=== PATIENT | female | born 1980 | race Caucasian/White ===

== ENCOUNTER → 2017-12-19 | Outpatient (CLI) | payer OTHER ==
[~2017-12-19] MED LIST: CALCTAB5 PO; ESCI1TAB10 PO; PRENTAB26 PO; SNG10 PO
--- NOTE | 2017-12-19 18:16 | DIAGNOSTIC IMAGING REPORT ---
PELVIC ULTRASOUND CLINICAL HISTORY: Pelvic pain. COMPARISON STUDY: Pelvic ultrasound April 03, 2010. TECHNIQUE: Transabdominal and transvaginal sonography of the pelvis was performed. FINDINGS: This exam is compromised due to suboptimal penetration. The uterus measures 10.1 x 4.5 x 5.5 cm. An intrauterine device appears appropriately positioned. There is no evidence for endometrial thickening. The right ovary was not visualized. The left ovary measured 2.2 x 3.1 x 2.4 cm and contained a 2.4 cm dominant follicle. There is color flow within the left ovary. No free fluid was identified. IMPRESSION: 1. Appropriately positioned intrauterine device. 2. Nonvisualization of the right ovary. Study compromised due to suboptimal penetration. 3. 2.4 cm dominant follicle within the left ovary. Electronically signed by: Jaiden Hernandez M.D. 12/19/2017 6:14 PM Dictated Date/Time: 12/19/2017 6:13 PM
== END | disposition home or self-care (01) ==
LOC: C.ULTR 17:10
PROVIDERS: ATTEND Student in an Organized Health Care Education/Training Program
DX: R10.2 Pelvic and perineal pain (principal); N83.02 Follicular cyst of left ovary

== ENCOUNTER → 2018-04-16 | Outpatient (CLI) | payer OTHER | END | disposition home or self-care (01) | LOC: C.PATHSPEC 10:22 | PROVIDERS: ATTEND Urology | DX: R30.0 Dysuria (principal); R31.0 Gross hematuria; N39.0 Urinary tract infection, site not specified ==

== ENCOUNTER → 2018-05-02 | Outpatient (CLI) | payer OTHER ==
[~2018-05-02] MED LIST changes: +OPTIRAY 320 IV PRN
--- NOTE | 2018-05-02 08:39 | DIAGNOSTIC IMAGING REPORT ---
CT UROGRAM CLINICAL HISTORY: Dysuria. Gross hematuria. COMPARISON STUDY: Abdominal ultrasound dated 02/25/2007. TECHNIQUE: Before and following the IV administration of 92 cc of Optiray 320, CT urogram of the abdomen and pelvis is performed from the lung bases to the proximal femora. Images are reviewed in the axial, sagittal, and coronal planes. IV contrast was administered without complication. A dose lowering technique was utilized adhering to the principles of ALARA. The examination is degraded by large body habitus, and by streak artifact from the body wall abutting the CT gantry. CT DOSE: 2517.38 mGycm FINDINGS: Lung bases: The heart is normal in size and without pericardial effusion. The lung bases are clear. Liver: The contrast-enhanced liver is enlarged, measuring 25.0 cm in length. The liver demonstrates diffusely imaged attenuation consistent with severe hepatic steatosis. Fatty sparing is noted adjacent to gallbladder fossa. There is no intrahepatic biliary ductal dilatation. The hepatic veins and portal veins are patent. Gallbladder: Unremarkable. Spleen: Normal in size and attenuation. Pancreas: Unremarkable. Adrenal glands: Unremarkable. Kidneys and ureters: The contrast enhanced kidneys are normal in size and without hydronephrosis. There are no renal calculi identified on the unenhanced images. The kidneys enhance and excrete symmetrically. There is no enhancing renal cortical mass lesion identified. There is no evidence of urothelial lesion within the renal pelvis bilaterally or along the course of either ureter. Portions of the ureters are not well opacified by excreted contrast. Abdominal vasculature: The abdominal aorta is normal in course and caliber. Bowel: The small bowel and colon are normal in course and caliber. The appendix is well-visualized and normal. Peritoneum: There is no intraperitoneal free air or abdominal ascites. There is a small fat-containing umbilical hernia. Lymphadenopathy: None. Pelvic viscera: The bladder is decompressed and grossly unremarkable. The uterus is normal as imaged noting an intrauterine device in place. There are small ovarian follicles. Skeletal structures: No lytic or blastic lesions are seen. IMPRESSION: 1. Unremarkable assessment of the kidneys and ureters. 2. The bladder was decompressed and grossly unremarkable. 3. Hepatomegaly and severe hepatic steatosis. Electronically signed by: Horacio Judd M.D. 05/02/2018 8:37 AM Dictated Date/Time: 05/02/2018 8:32 AM
== END | disposition home or self-care (01) ==
LOC: C.CTS 07:58
PROVIDERS: ATTEND Urology
DX: N39.0 Urinary tract infection, site not specified (principal); R31.0 Gross hematuria; R30.0 Dysuria; R16.0 Hepatomegaly, not elsewhere classified; K76.0 Fatty (change of) liver, not elsewhere classified

== ENCOUNTER 2018-09-08 08:47 | Inpatient (IN) ==
[2018-09-08] MEDS ORDERED: MoRPHine SULFATE 4 MG/ML 1 ML CARP\\VIAL IV STA (09:39)
[2018-09-08] MEDS ORDERED: ONDANSETRON INJ 2 MG/ML 2 ML VIAL IV STA (09:39)
[2018-09-08] MEDS ORDERED: SODIUM CHLORIDE 0.9% 1000ML 1,000 ML IV SCH (09:45)
[2018-09-08 10:07] LABS: Basophils # (auto) 0.01 K/uL (0-0.2); Basophils % (auto) 0.1 %; Eosinophils # (auto) 0.13 K/uL (0-0.5); Eosinophils % (auto) 1.2 %; Hematocrit (blood only) 39.1 % (37-47); Hemoglobin 13.5 g/dL (12.0-16.0); Immature Granulocytes # (auto) 0.01 K/uL (0.00-0.02); Immature Granulocytes % (auto) 0.1 %; Lymphocytes # (auto) 1.64 K/uL (1.2-3.4); Lymphocytes % (auto) 15.7 %; Mean Corpuscular Hgb Conc 34.5 g/dL (32-36); Mean Corpuscular Volume 87.7 fL (80-100); Mean Platelet Volume 9.6 fL (7.4-10.4); Monocytes # (auto) 0.67 K/uL (0.11-0.59); Monocytes % (auto) 6.4 %; Neutrophils # (auto) 7.96 K/uL (1.4-6.5); Neutrophils % (auto) 76.5 %; Platelet Count 199 K/uL (130-400); RDW Coefficient of Variation 13.1 % (11.5-14.5); RDW Standard Deviation 42.1 fL (36.4-46.3); Red Blood Count 4.46 M/uL (4.2-5.4); White Blood Count 10.42 K/uL (4.8-10.8)
[2018-09-08 10:15] LABS: Appearance Urine Clear (Clear); Color Urine Orange; Specific Gravity Urine 1.022 (1.000-1.030)
[2018-09-08 10:16] LABS: Protein Urine Positive (Negative)
[2018-09-08 10:22] LABS: RBC Urine >30 /hpf (0-4)
[2018-09-08 10:23] LABS: Albumin Level 3.5 gm/dl (3.4-5.0); BUN Creatinine Ratio 20.8 (10-20); Calcium 8.7 mg/dl (8.5-10.1); Creatinine Clr Calc Pharmacy 118.8 ml/min; Est GFR (Non-African American) 86.3; Potassium 3.9 mmol/L (3.5-5.1)
[2018-09-08 10:24] LABS: Bacteria Urine 2+ (Negative)
[2018-09-08 10:25] LABS: Mucus Urine Present (None Prsent)
[2018-09-08 10:26] LABS: Albumin Globulin Ratio 0.9 (0.9-2); Bilirubin,Total 0.5 mg/dl (0.2-1); Globulin 3.9 gm/dl (2.5-4.0); Total Protein 7.4 gm/dl (6.4-8.2)
[2018-09-08 10:28] LABS: Pregnancy Test, Serum Negative (Negative)
--- NOTE | 2018-09-08 10:36 | CT Scan Report ---
CT SCAN OF THE ABDOMEN AND PELVIS WITHOUT IV CONTRAST CLINICAL HISTORY: Left flank pain. Reported history of recent ureteral stent removal. COMPARISON STUDY: Abdominal CT dated 05/02/2018. TECHNIQUE: CT scan of the abdomen and pelvis is performed from the lung bases to the proximal femora. Images are reviewed in the axial, sagittal, and coronal planes. IV contrast was not administered for this examination. A dose lowering technique was utilized adhering to the principles of ALARA. The ex amination is degraded by large body habitus, and by streak artifact from the body wall abutting the C T gantry. CT DOSE: 2111.29 mGy.cm FINDINGS: Lung bases: The heart is normal in size and without pericardial effusion. There is elevation of the r ight hemidiaphragm with associated atelectasis. The lung bases are otherwise clear. Liver: The unenhanced liver is enlarged measuring 25.4 cm in length. The liver demonstrates diffusely diminished attenuation consistent with severe hepatic steatosis. Fatty sparing is seen adjacent to g allbladder fossa. A 3.3 cm hyperdense focus is seen in the left hepatic lobe on image #135. There is no intrahepatic biliary ductal dilatation. Gallbladder: Unremarkable. Spleen: Normal in size and attenuation. Pancreas: Unremarkable. Adrenal glands: Unremarkable. Kidneys: The unenhanced kidneys are normal in size. The left kidney appears edematous and there is mo derate left-sided hydronephrosis. Urothelial thickening is noted in the left ureter, and there is lef t-sided perinephric and periureteric stranding. There is no right-sided hydronephrosis. There are no renal calculi identified. There is no evidence of contour deforming renal mass lesion. Abdominal vasculature: The abdominal aorta is normal in course and caliber. Bowel: The small bowel and colon are normal in course and caliber. The appendix is well-visualized a nd normal. Peritoneum: There is no intraperitoneal free air or abdominal ascites. There is a fat-containing umbi lical hernia. Lymphadenopathy: None. Pelvic viscera: The bladder is partially decompressed and grossly unremarkable. An intrauterine devic e is in place. Small uterine fibroids are suggested. No adnexal lesion is seen. There are bilateral o varian follicles. Skeletal structures: No lytic or blastic lesions are seen. IMPRESSION: 1. The left kidney is edematous and there is moderate left-sided hydronephrosis. Additionally, there is urothelial thickening seen throughout the left ureter, with associated left-sided perinephric and periureteric stranding. This may be related to the reported history of recent instrumentation. Correl ate clinically and with urinalysis for evidence of superimposed urinary tract infection. 2. No renal calculi or obstructing lesion is seen. 3. Hepatomegaly and severe hepatic steatosis. 4. There is a 3.3 cm ovoid hyperdense focus in the left hepatic lobe. This likely represents geograph ic fatty sparing. An indeterminant hepatic lesion could also have this appearance. If further assessm ent is desired an MRI of the liver would be required. 5. Additional findings as above. Electronically signed by: Horacio Judd M.D. 09/08/2018 10:35 AM
[2018-09-08] MEDS ORDERED: MoRPHine SULFATE 2 MG/ML CARP IV STA (11:41)
[2018-09-08] MEDS ORDERED: LEVOFLOXACIN/D5W 500 MG/100 ML BAG IV ONE (12:49)
--- NOTE | 2018-09-08 13:27 | Emergency Department Note ---
Entered by Norman Ramirez acting as a scribe for Grady Garnica DO History of Present Illness General Chief complaint: Urinary Symptoms Stated complaint: POST OP, URINARY STENT, PAIN Time Seen by Provider: 09/08/18 09:13 Source: patient History of Present Illness Onset (ago): day(s) 1 Location: left (groin and flank) Pain Consistency: + constant Quality: + other (left groin and flank pain s/p cystoscopy four days ago) Relieved By: + medication (Percocet) Associated symptoms: no other (burning with urination) The patient is a 38 year old female s/p cystoscopy four days ago who presents to the Emergency Room with complaints of constant left groin and flank pain beginning yesterday. The patient reports that she had a polyp removed and a stent placed during her recent procedure performed by Dr. Yan - Urology. She states that she was doing well until yesterday when her stent was loose, and she was instructed to pull it out by Dr. Yan after calling. Dr. Yna also stated that the pain should last only around 12 hours, but she states that her pain has continued to persist. She reports that for the past year, she has been experiencing pain in her groin as well as recurrent UTIs. She states that she is currently taking doxycycline, Pyridium, and Percocet for pain management. She denies recent burning with urination. She notes that she does not have kidney stones. Home Medications Home Medications Medication Instructions Recorded Confirmed Type albuterol sulfate 1 puff INHALATION Q6H PRN 08/18/18 09/08/18 History nitrofurantoin macrocrystal 50 mg PO UD 08/18/18 09/08/18 History venlafaxine [Effexor XR] 150 mg PO QAM 08/18/18 09/08/18 History doxycycline hyclate 100 mg PO BID #10 cap 09/04/18 09/08/18 Rx oxycodone-acetaminophen [Percocet] 1 tab PO Q6H PRN #3 tab 09/04/18 09/08/18 Rx phenazopyridine [Urinary Pain 95 mg PO Q8 PRN 09/08/18 09/08/18 History Relief] tamsulosin [Flomax] 0.4 mg PO DIRECTED 12/31/18 12/31/18 History Allergies Allergy/AdvReac Type Severity Reaction Status Date / Time cephalexin Allergy Intermediate hives Verified 09/08/18 09:15 Cephalosporins Allergy Intermediate HIVES Verified 09/08/18 09:15 erythromycin base Allergy Intermediate HIVES Verified 09/08/18 09:15 Penicillins Allergy Intermediate HIVES Verified 09/08/18 09:15 sertraline Allergy Intermediate HIVES Verified 09/08/18 09:15 Past Med/Surg History Medical History Anxiety Asthma rarely uses prn inh Bladder polyp Factor 5 Leiden mutation, heterozygous Doesn't cause problems, but did have to use Lovenox after childbirth. Fatty liver Morbid obesity with BMI of 45.0-49.9, adult Social History Current Living Situation: Spouse Feels Safe at Home: Yes Smoking Status: Never smoker Second Hand Exposure: No Hx Alcohol Use: No Hx Substance Use: No Beliefs That Will Affect Care: None Visual Impairment: No Limitations Review of Systems See HPI for pertinent positives & negatives. and A total of 10 systems reviewed and were otherwise negative Physical Exam Vital Signs Vital Signs - 24 hr 09/08/18 08:51 09/08/18 11:15 09/08/18 12:14 Temperature 36.3 C L Temperature Source Oral Sepsis Recent Fever Within 48 Hours No Sepsis Action Taken by Nursing No Action Required Pulse Rate 108 H Pulse Rate [Finger] 93 H 90 Respiratory Rate 20 16 18 Respiratory Effort / Characteristics Non-Labored Respiratory Depth Normal Blood Pressure 150/96 H Blood Pressure [Right Arm] 145/89 H 130/90 Blood Pressure Mean 114 Blood Pressure Mean [Right Arm] 107 103 Pulse Oximetry 96 96 96 Oxygen Delivery Method Room Air Room Air CONSTITUTIONAL/VITAL SIGNS: Reviewed / noted above. GENERAL: Non-toxic in appearance. INTEGUMENTARY: Warm, dry, and [place]. HEAD: Normocephalic. EYES: without scleral icterus or trauma. ENT/OROPHARYNX: clear and moist. LYMPHADENOPATHY/NECK: Is supple without lymphadenopathy or meningismus. RESPIRATORY: Lungs clear and equal. CARDIOVASCULAR: Regular rate and rhythm. GI/ABDOMEN: Soft and nontender. No organomegaly or pulsatile mass. No rebound or guarding. Normal bowel sounds. EXTREMITIES: Warm and well perfused. BACK: Left-sided CVA tenderness. NEUROLOGICAL: Intact without focal deficits. PSYCHIATRIC: normal affect. MUSCULOSKELETAL: Normally developed with good muscle tone. Course 931: Past medical records reviewed. The patient was evaluated in room A10, and a complete history and physical examination were performed. 1242: I discussed the patients case with Dr. Macdonald Urology. He recommends admitting the patient and administering antibiotics. 1253: I consulted Dr. Ray [facility] Hospitalist. She will reevaluate the patient for hospitalization. 1258: I updated the patient on the plan for hospitalization. Consultations Consultation #1: I discussed the patients case with Dr. Macdonald Urology. He recommends admitting the patient and administering antibiotics. Time: 12:42 Consultation #2: I consulted Dr. Ray [facility] Hospitalist. She will reevaluate the patient for hospitalization. Time: 12:53 Administered Medications Levofloxacin/Dextrose (Levaquin/D5w) 500 mg in 100 mls @ 100 mls/hr IV ONE ONE Stop: 09/08/18 13:48 Last Admin: 09/08/18 12:56 Dose: 100 mls/hr Discontinued Medications Sodium Chloride (Nss 1000ml) 1,000 mls @ 999 mls/hr IV .Q1H1M MICHAEL Stop: 09/08/18 10:45 Last Infusion: 09/08/18 11:13 Dose: 0 mls/hr Admin: 09/08/18 10:13 Dose: 999 mls/hr Morphine Sulfate (Morphine Sulfate) 4 mg IV NOW STA Stop: 09/08/18 09:40 Last Admin: 09/08/18 10:12 Dose: 4 mg Morphine Sulfate (Morphine Sulfate) 2 mg IV NOW STA Stop: 09/08/18 11:42 Last Admin: 09/08/18 11:50 Dose: 2 mg Ondansetron HCl (Zofran) 4 mg IV NOW STA Stop: 09/08/18 09:40 Last Admin: 09/08/18 10:12 Dose: 4 mg Medical Decision Making Differential Diagnosis Differential diagnosis: Etiologies such as renal colic, appendicitis, diverticulitis, mesenteric ischemia, aortic pathology, infections, inflammatory bowel disease, PUD, biliary pathology, UTI, as well as others were entertained. Medical Records Attestation: I reviewed the patient's medical records. Home Medications Current Medication List: was personally reviewed by me Laboratory Data Attestation: I reviewed the patient's lab results. Result diagrams: 09/08/18 10:00 09/08/18 10:00 Lab Results 09/08/18 09/08/18 09/08/18 Range/Units 09:30 10:00 10:00 WBC 10.42 (4.8-10.8) K/uL RBC 4.46 (4.2-5.4) M/uL Hgb 13.5 (12.0-16.0) g/dL Hct 39.1 (37-47) % MCV 87.7 (80-100) fL MCH 30.3 (25-34) pg MCHC 34.5 (32-36) g/dL RDW Std Deviation 42.1 (36.4-46.3) fL RDW Coeff of [place] 13.1 (11.5-14.5) % Plt Count 199 (130-400) K/uL MPV 9.6 (7.4-10.4) fL Immature Gran % (Auto) 0.1 % Neut % (Auto) 76.5 % Lymph % (Auto) 15.7 % [place] % (Auto) 6.4 % Eos % (Auto) 1.2 % Baso % (Auto) 0.1 % Immature Gran # (Auto) 0.01 (0.00-0.02) K/uL Neut # (Auto) 7.96 H (1.4-6.5) K/uL Lymph # (Auto) 1.64 (1.2-3.4) K/uL [place] # (Auto) 0.67 H (0.11-0.59) K/uL Eos # (Auto) 0.13 (0-0.5) K/uL Baso # (Auto) 0.01 (0-0.2) K/uL Sodium 137 (136-145) mmol/L Potassium 3.9 (3.5-5.1) mmol/L Chloride 106 (98-107) mmol/L Carbon Dioxide 23 (21-32) mmol/L Anion Gap 8.0 (3-11) BUN 18 (7-18) mg/dl Creatinine 0.86 (0.6-1.2) mg/dl Est Cr Clr Drug Dosing 118.8 ml/min Est GFR ( Amer) 100.0 Est GFR (Non-Af Amer) 86.3 BUN/Creatinine Ratio 20.8 H (10-20) Glucose 126 H (70-99) mg/dl Calcium 8.7 (8.5-10.1) mg/dl Total Bilirubin 0.5 (0.2-1) mg/dl AST 12 L (15-37) U/L ALT 31 (12-78) U/L Alkaline Phosphatase 75 (45-117) U/L Total Protein 7.4 (6.4-8.2) gm/dl Albumin 3.5 (3.4-5.0) gm/dl Globulin 3.9 (2.5-4.0) gm/dl Albumin/Globulin Ratio 0.9 (0.9-2) HCG, Qual (Negative) Urine Color [place] Urine Appearance Clear (Clear) Urine pH (4.5-7.5) Ur Specific [place] 1.022 (1.000-1.030) Urine Protein Positive H (Negative) Urine Glucose (UA) (Negative) Urine Ketones (Negative) Urine Blood (Negative) Urine Nitrite (Negative) Urine Bilirubin (Negative) Urine Urobilinogen (Negative) Ur Leukocyte Esterase (Negative) Urine RBC >30 H (0-4) /hpf Urine WBC 5-10 H (0-5) /hpf Ur Epithelial Cells >30 H (0-5) /lpf Urine Bacteria 2+ H (Negative) Urine Mucus Present H (None Prsent) 09/08/18 Range/Units 10:00 WBC (4.8-10.8) K/uL RBC (4.2-5.4) M/uL Hgb (12.0-16.0) g/dL Hct (37-47) % MCV (80-100) fL MCH (25-34) pg MCHC (32-36) g/dL RDW Std Deviation (36.4-46.3) fL RDW Coeff of Barbara (11.5-14.5) % Plt Count (130-400) K/uL MPV (7.4-10.4) fL Immature Gran % (Auto) % Neut % (Auto) % Lymph % (Auto) % [place] % (Auto) % Eos % (Auto) % Baso % (Auto) % Immature Gran # (Auto) (0.00-0.02) K/uL Neut # (Auto) (1.4-6.5) K/uL Lymph # (Auto) (1.2-3.4) K/uL [place] # (Auto) (0.11-0.59) K/uL Eos # (Auto) (0-0.5) K/uL Baso # (Auto) (0-0.2) K/uL Sodium (136-145) mmol/L Potassium (3.5-5.1) mmol/L Chloride (98-107) mmol/L Carbon Dioxide (21-32) mmol/L Anion Gap (3-11) BUN (7-18) mg/dl Creatinine (0.6-1.2) mg/dl Est Cr Clr Drug Dosing ml/min Est GFR ( Amer) Est GFR (Non-Af Amer) BUN/Creatinine Ratio (10-20) Glucose (70-99) mg/dl Calcium (8.5-10.1) mg/dl Total Bilirubin (0.2-1) mg/dl AST (15-37) U/L ALT (12-78) U/L Alkaline Phosphatase (45-117) U/L Total Protein (6.4-8.2) gm/dl Albumin (3.4-5.0) gm/dl Globulin (2.5-4.0) gm/dl Albumin/Globulin Ratio (0.9-2) HCG, Qual Negative (Negative) Urine Color Urine Appearance (Clear) Urine pH (4.5-7.5) Ur Specific [place] (1.000-1.030) Urine Protein (Negative) Urine Glucose (UA) (Negative) Urine Ketones (Negative) Urine Blood (Negative) Urine Nitrite (Negative) Urine Bilirubin (Negative) Urine Urobilinogen (Negative) Ur Leukocyte Esterase (Negative) Urine RBC (0-4) /hpf Urine WBC (0-5) /hpf Ur Epithelial Cells (0-5) /lpf Urine Bacteria (Negative) Urine Mucus (None Prsent) Imaging Data Radiologist's Impression: Radiology results as stated below per my review and the radiologist's interpretation: CT SCAN OF THE ABDOMEN AND PELVIS WITHOUT IV CONTRAST CLINICAL HISTORY: Left flank pain. Reported history of recent ureteral stent removal. COMPARISON STUDY: Abdominal CT dated 05/02/2018. TECHNIQUE: CT scan of the abdomen and pelvis is performed from the lung bases to the proximal femora. Images are reviewed in the axial, sagittal, and coronal planes. IV contrast was not administered for this examination. A dose lowering technique was utilized adhering to the principles of ALARA. The examination is degraded by large body habitus, and by streak artifact from the body wall abutting the CT gantry. CT DOSE: 2111.29 mGy.cm FINDINGS: Lung bases: The heart is normal in size and without pericardial effusion. There is elevation of the right hemidiaphragm with associated atelectasis. The lung bases are otherwise clear. Liver: The unenhanced liver is enlarged measuring 25.4 cm in length. The liver demonstrates diffusely diminished attenuation consistent with severe hepatic steatosis. Fatty sparing is seen adjacent to gallbladder fossa. A 3.3 cm hyperdense focus is seen in the left hepatic lobe on image #135. There is no intrahepatic biliary ductal dilatation. Gallbladder: Unremarkable. Spleen: Normal in size and attenuation. Pancreas: Unremarkable. Adrenal glands: Unremarkable. Kidneys: The unenhanced kidneys are normal in size. The left kidney appears edematous and there is moderate left-sided hydronephrosis. Urothelial thickening is noted in the left ureter, and there is left-sided perinephric and periureteric stranding. There is no right-sided hydronephrosis. There are no renal calculi identified. There is no evidence of contour deforming renal mass lesion. Abdominal vasculature: The abdominal aorta is normal in course and caliber. Bowel: The small bowel and colon are normal in course and caliber. The appendix is well-visualized and normal. Peritoneum: There is no intraperitoneal free air or abdominal ascites. There is a fat-containing umbilical hernia. Lymphadenopathy: None. Pelvic viscera: The bladder is partially decompressed and grossly unremarkable. An intrauterine device is in place. Small uterine fibroids are suggested. No adnexal lesion is seen. There are bilateral ovarian follicles. Skeletal structures: No lytic or blastic lesions are seen. IMPRESSION: 1. The left kidney is edematous and there is moderate left-sided hydronephrosis. Additionally, there is urothelial thickening seen throughout the left ureter, with associated left-sided perinephric and periureteric stranding. This may be related to the reported history of recent instrumentation. Correlate clinically and with urinalysis for evidence of superimposed urinary tract infection. 2. No renal calculi or obstructing lesion is seen. 3. Hepatomegaly and severe hepatic steatosis. 4. There is a 3.3 cm ovoid hyperdense focus in the left hepatic lobe. This likely represents geographic fatty sparing. An indeterminant hepatic lesion could also have this appearance. If further assessment is desired an MRI of the liver would be required. 5. Additional findings as above. Electronically signed by: Horacio Judd M.D. 09/08/2018 10:35 AM Blood Pressure Blood Pressure Findings: Elevated blood pressure Blood Pressure Disposition: further management by hospitalist DAVID Germain This is a 38-year-old female who presents to the ED with a chief complaint of left flank pain radiating to her left groin. The patient had a cystoscopy [address] Yan. The patient started noticing that her ureteral stent seem to be coming out yesterday. This was then removed by the . Since that time, she has had increasing discomfort in her left flank and groin area. The patient has some left CVA tenderness on exam. No abdominal tenderness. CBC and chemistry panel was unremarkable. Urine revealed protein but no evidence of infection. test was negative. A CT scan of the abdomen pelvis reveals some edematous left kidney with left-sided hydronephrosis and perinephric and periureteral stranding and ureteral thickening. The patient was treated with IV morphine, IV fluids and IV Zofran. She is also given IV Levaquin. I spoke with Dr. Macdonald from urology. He recommends keeping the patient in the hospital for pain management and further evaluation. I spoke with the hospitalist about the patient. Impression & Plan Hydroureteronephrosis Discharge Plan Visit Data Chief Complaint: Urinary Symptoms Stated Complaint: POST OP, URINARY STENT, PAIN ED Provider: Grady Garnica Discharge Problem: Hydroureteronephrosis Patient Disposition: Being Evaluated by Hospitalist Forms Stand Alone Forms: My [facility] Prescriptions Prescriptions: No Action phenazopyridine [Urinary Pain Relief] 95 mg Tablet 95 mg PO Q8 PRN (Reason: urinary pain) RF: 0 tamsulosin [Flomax] 0.4 mg capsule 0.4 mg PO DIRECTED RF: 0 nitrofurantoin macrocrystal 50 mg Capsule 50 mg PO UD RF: 0 venlafaxine [Effexor XR] 150 mg Capsule,Extended Release 24hr 150 mg PO QAM RF: 0 albuterol sulfate 90 mcg/actuation Hfa Aerosol Inhaler 1 puff INHALATION Q6H PRN (Reason: Shortness Of Breath) RF: 0 oxycodone-acetaminophen [Percocet] 7.5-325 mg tablet 1 tab PO Q6H PRN (Reason: pain) Qty: 3 RF: 0 doxycycline hyclate 100 mg capsule 100 mg PO BID Qty: 10 RF: 0 Referrals Referrals: Lonnie Chi [Primary Care Provider] - The scribe's documentation has been prepared under my direction and personally reviewed by me in its entirety. I confirm that the note above accurately reflects all work, treatment, procedures, and medical decision making performed by me.
--- NOTE | 2018-09-08 13:38 | History & Physical Report ---
Date of Service September 08, 2018 Assessment & Plan (1) Hydroureteronephrosis: S/p removal of stent. CT with edematous left kidney with moderate left- sided hydronephrosis with urothelial thickening throughout the left ureter, perinephric and periureteric stranding. Patient is afebrile, hemodynamically stable, no leukocytosis. UA+ protein/RBCs/WBCs/epi/bacteria. +UOP. ? inflammation s/p instrumention and stent removal. * Admit to medical floor * Follow urine culture * Monitor I/Os * Nausea control with Zofran 4mg IV q 6 hours PRN * Pain control with Morphine 2mg IV q 2 hours PRN * Cipro 500mg po BID * Flomax 0.4mg po daily * Urology consultation - appreciate assistance with this case * Will keep patient NPO if event of procedure - will advance diet as tolerated * Present on Admission?: Yes (2) Anxiety: Chronic. Well controlled with Effexor * Continue Effexor daily * F/E/N - LR at 100mL/hr x 2 liters, monitor electrolytes and replete as needed, NPO for now will advance diet as tolerated Ppx - Low risk for DVT Code - Full per discussion with patient Dispo - Admit to medical floor for pain, nausea control and Uro evaluation Present on Admission?: Yes History of Present Illness Chief Complaint: Left flank pain Primary Care Provider: Lonnie Chi Patient is a pleasant 38yo female presenting with left flank and groin pain. Patient has been having longstanding intermittent groin and flank pain with hematuria. Workup performed by Urology - cystoscopy with bilateral retrograde pyelogram performed on 09/04/[address] Yan, s/p biopsy of bladder neck, left ureteral orifice and placement of a left ureteral stent. She was discharged home with Flomax and Doxycycline as well as percocet for pain. States that she was doing well after the procedure, minimal pain. Yesterday, , around 12:00 she noted that her stent became loose and the string was out. She contacted Urology and was told to remove the stent. Patient's pulled the stent without difficulty. Patient had slight discomfort. She took her Flomax, Percocet and Ibuprofen with relief of discomfort. This AM around 02:00 she had worsening left flank and groin pain. She again took her medications with minimal relief. Pain became severe around 08:00 which prompted her to come to the ER. She denies fevers, chills or sweats. Does complain of left flank pain, groin pain and nausea with no vomiting. No additional complaints at this time. ER Course: Morphine x 6mg IV, Zofran x 4mg IV, Levaquin, NSS Allergies Allergy/AdvReac Type Severity Reaction Status Date / Time cephalexin Allergy Intermediate hives Verified 09/08/18 09:15 Cephalosporins Allergy Intermediate HIVES Verified 09/08/18 09:15 erythromycin base Allergy Intermediate HIVES Verified 09/08/18 09:15 Penicillins Allergy Intermediate HIVES Verified 09/08/18 09:15 sertraline Allergy Intermediate HIVES Verified 09/08/18 09:15 Home Medications Home Medications Medication Instructions Recorded Confirmed Type albuterol sulfate 1 puff INHALATION Q6H PRN 08/18/18 09/08/18 History nitrofurantoin macrocrystal 50 mg PO UD 08/18/18 09/08/18 History venlafaxine [Effexor XR] 150 mg PO QAM 08/18/18 09/08/18 History doxycycline hyclate 100 mg PO BID #10 cap 09/04/18 09/08/18 Rx oxycodone-acetaminophen [Percocet] 1 tab PO Q6H PRN #3 tab 09/04/18 09/08/18 Rx phenazopyridine [Urinary Pain 95 mg PO Q8 PRN 09/08/18 09/08/18 History Relief] tamsulosin [Flomax] 0.4 mg PO DIRECTED 09/08/18 09/08/18 History Past Med/Surg History Medical History Anxiety Asthma rarely uses prn inh Bladder polyp Factor 5 Leiden mutation, heterozygous Doesn't cause problems, but did have to use Lovenox after childbirth. Fatty liver Morbid obesity with BMI of 45.0-49.9, adult Social History Current Living Situation: Spouse Other Information That Helps Us Care for You: No Feels Safe at Home: Yes Safety Concerns: Feels Safe At This Time Smoking Status: Never smoker Do You Dip or Chew Tobacco: No Second Hand Exposure: No Tobacco Cessation Education Requested by Patient: No Hx Alcohol Use: No Hx Substance Use: No Beliefs That Will Affect Care: None Preferred Language: Belarusian Communication Ability: Effective Kier Boiler Required: No Review of Systems All systems reviewed & are unremarkable except as noted in HPI & below +UOP, no dysuria, no hematuria Physical Exam 2 Vital Signs (Past 24 Hours): Last Vital Signs Temp 36.3 C L 09/08/18 08:51 Pulse 90 09/08/18 12:14 Resp 18 09/08/18 12:14 BP 130/90 09/08/18 12:14 Pulse Ox 96 09/08/18 12:14 Physical Exam: General: patient resting comfortably, NAD, non-toxic in appearance, AA&O x 4 Skin: warm, dry, intact, no rashes or lesions HEENT: NC/AT, PERRL, EOMI, anicteric sclera, conjunctiva without injection, external ear normal to inspection and nontender, nares patent, moist mucus membranes, dentition intact, no oropharyngeal lesions, neck supple, trachea midline, no LAD, no thyromegaly, no JVD Heart: +S1/S2, regular, no m/r/g Lungs: equal air entry bilaterally, no rales/rhonchi/wheezes Abd: +BS, soft, NT/ND, no masses/organomegaly/ascites, +Left flank discomfort and CVA tenderness Ext: warm, 2+ pulses in UE/LE bilaterally, no clubbing/cyanosis or edema Neuro: nonfocal, patient AA&O x 4, speech intact, no facial droop, moving all extremities on command with equal strength 5/5 Results & Data Laboratory Results Lab Results 09/08/18 09/08/18 09/08/18 Range/Units 09:30 10:00 10:00 WBC 10.42 (4.8-10.8) K/uL RBC 4.46 (4.2-5.4) M/uL Hgb 13.5 (12.0-16.0) g/dL Hct 39.1 (37-47) % MCV 87.7 (80-100) fL MCH 30.3 (25-34) pg MCHC 34.5 (32-36) g/dL RDW Std Deviation 42.1 (36.4-46.3) fL RDW Coeff of Barbara 13.1 (11.5-14.5) % Plt Count 199 (130-400) K/uL MPV 9.6 (7.4-10.4) fL Immature Gran % (Auto) 0.1 % Neut % (Auto) 76.5 % Lymph % (Auto) 15.7 % [place] % (Auto) 6.4 % Eos % (Auto) 1.2 % Baso % (Auto) 0.1 % Immature Gran # (Auto) 0.01 (0.00-0.02) K/uL Neut # (Auto) 7.96 H (1.4-6.5) K/uL Lymph # (Auto) 1.64 (1.2-3.4) K/uL [place] # (Auto) 0.67 H (0.11-0.59) K/uL Eos # (Auto) 0.13 (0-0.5) K/uL Baso # (Auto) 0.01 (0-0.2) K/uL Sodium 137 (136-145) mmol/L Potassium 3.9 (3.5-5.1) mmol/L Chloride 106 (98-107) mmol/L Carbon Dioxide 23 (21-32) mmol/L Anion Gap 8.0 (3-11) BUN 18 (7-18) mg/dl Creatinine 0.86 (0.6-1.2) mg/dl Est Cr Clr Drug Dosing 118.8 ml/min Est GFR ( Amer) 100.0 Est GFR (Non-Af Amer) 86.3 BUN/Creatinine Ratio 20.8 H (10-20) Glucose 126 H (70-99) mg/dl Calcium 8.7 (8.5-10.1) mg/dl Total Bilirubin 0.5 (0.2-1) mg/dl AST 12 L (15-37) U/L ALT 31 (12-78) U/L Alkaline Phosphatase 75 (45-117) U/L Total Protein 7.4 (6.4-8.2) gm/dl Albumin 3.5 (3.4-5.0) gm/dl Globulin 3.9 (2.5-4.0) gm/dl Albumin/Globulin Ratio 0.9 (0.9-2) HCG, Qual (Negative) Urine Color [place] Urine Appearance Clear (Clear) Urine pH (4.5-7.5) Ur Specific [place] 1.022 (1.000-1.030) Urine Protein Positive H (Negative) Urine Glucose (UA) (Negative) Urine Ketones (Negative) Urine Blood (Negative) Urine Nitrite (Negative) Urine Bilirubin (Negative) Urine Urobilinogen (Negative) Ur Leukocyte Esterase (Negative) Urine RBC >30 H (0-4) /hpf Urine WBC 5-10 H (0-5) /hpf Ur Epithelial Cells >30 H (0-5) /lpf Urine Bacteria 2+ H (Negative) Urine Mucus Present H (None Prsent) 09/08/18 Range/Units 10:00 WBC (4.8-10.8) K/uL RBC (4.2-5.4) M/uL Hgb (12.0-16.0) g/dL Hct (37-47) % MCV (80-100) fL MCH (25-34) pg MCHC (32-36) g/dL RDW Std Deviation (36.4-46.3) fL RDW Coeff of Barbara (11.5-14.5) % Plt Count (130-400) K/uL MPV (7.4-10.4) fL Immature Gran % (Auto) % Neut % (Auto) % Lymph % (Auto) % [place] % (Auto) % Eos % (Auto) % Baso % (Auto) % Immature Gran # (Auto) (0.00-0.02) K/uL Neut # (Auto) (1.4-6.5) K/uL Lymph # (Auto) (1.2-3.4) K/uL [place] # (Auto) (0.11-0.59) K/uL Eos # (Auto) (0-0.5) K/uL Baso # (Auto) (0-0.2) K/uL Sodium (136-145) mmol/L Potassium (3.5-5.1) mmol/L Chloride (98-107) mmol/L Carbon Dioxide (21-32) mmol/L Anion Gap (3-11) BUN (7-18) mg/dl Creatinine (0.6-1.2) mg/dl Est Cr Clr Drug Dosing ml/min Est GFR ( Amer) Est GFR (Non-Af Amer) BUN/Creatinine Ratio (10-20) Glucose (70-99) mg/dl Calcium (8.5-10.1) mg/dl Total Bilirubin (0.2-1) mg/dl AST (15-37) U/L ALT (12-78) U/L Alkaline Phosphatase (45-117) U/L Total Protein (6.4-8.2) gm/dl Albumin (3.4-5.0) gm/dl Globulin (2.5-4.0) gm/dl Albumin/Globulin Ratio (0.9-2) HCG, Qual Negative (Negative) Urine Color Urine Appearance (Clear) Urine pH (4.5-7.5) Ur Specific [place] (1.000-1.030) Urine Protein (Negative) Urine Glucose (UA) (Negative) Urine Ketones (Negative) Urine Blood (Negative) Urine Nitrite (Negative) Urine Bilirubin (Negative) Urine Urobilinogen (Negative) Ur Leukocyte Esterase (Negative) Urine RBC (0-4) /hpf Urine WBC (0-5) /hpf Ur Epithelial Cells (0-5) /lpf Urine Bacteria (Negative) Urine Mucus (None Prsent) Diagnostic Findings CT SCAN OF THE ABDOMEN AND PELVIS WITHOUT IV CONTRAST CLINICAL HISTORY: Left flank pain. Reported history of recent ureteral stent removal. COMPARISON STUDY: Abdominal CT dated 05/02/2018. TECHNIQUE: CT scan of the abdomen and pelvis is performed from the lung bases to the proximal femora. Images are reviewed in the axial, sagittal, and coronal planes. IV contrast was not administered for this examination. A dose lowering technique was utilized adhering to the principles of ALARA. The examination is degraded by large body habitus, and by streak artifact from the body wall abutting the CT gantry. CT DOSE: 2111.29 mGy.cm FINDINGS: Lung bases: The heart is normal in size and without pericardial effusion. There is elevation of the right hemidiaphragm with associated atelectasis. The lung bases are otherwise clear. Liver: The unenhanced liver is enlarged measuring 25.4 cm in length. The liver demonstrates diffusely diminished attenuation consistent with severe hepatic steatosis. Fatty sparing is seen adjacent to gallbladder fossa. A 3.3 cm hyperdense focus is seen in the left hepatic lobe on image #135. There is no intrahepatic biliary ductal dilatation. Gallbladder: Unremarkable. Spleen: Normal in size and attenuation. Pancreas: Unremarkable. Adrenal glands: Unremarkable. Kidneys: The unenhanced kidneys are normal in size. The left kidney appears edematous and there is moderate left-sided hydronephrosis. Urothelial thickening is noted in the left ureter, and there is left-sided perinephric and periureteric stranding. There is no right-sided hydronephrosis. There are no renal calculi identified. There is no evidence of contour deforming renal mass lesion. Abdominal vasculature: The abdominal aorta is normal in course and caliber. Bowel: The small bowel and colon are normal in course and caliber. The appendix is well-visualized and normal. Peritoneum: There is no intraperitoneal free air or abdominal ascites. There is a fat-containing umbilical hernia. Lymphadenopathy: None. Pelvic viscera: The bladder is partially decompressed and grossly unremarkable. An intrauterine device is in place. Small uterine fibroids are suggested. No adnexal lesion is seen. There are bilateral ovarian follicles. Skeletal structures: No lytic or blastic lesions are seen. IMPRESSION: 1. The left kidney is edematous and there is moderate left-sided hydronephrosis. Additionally, there is urothelial thickening seen throughout the left ureter, with associated left-sided perinephric and periureteric stranding. This may be related to the reported history of recent instrumentation. Correlate clinically and with urinalysis for evidence of superimposed urinary tract infection. 2. No renal calculi or obstructing lesion is seen. 3. Hepatomegaly and severe hepatic steatosis. 4. There is a 3.3 cm ovoid hyperdense focus in the left hepatic lobe. This likely represents geographic fatty sparing. An indeterminant hepatic lesion could also have this appearance. If further assessment is desired an MRI of the liver would be required. 5. Additional findings as above. Electronically signed by: Horacio Judd M.D. 09/08/2018 10:35 AM Dictated: 09/08/18 1024 Transcribed: 09/08/18 1024 ECG Additional Comments: ordered Code Status & VTE Plan Code Status FULL VTE Prophylaxis Plan VTE Prophylaxis will be ordered: No Reason for no VTE drug order: Treatment not indicated Critical Care Time Critical Care Time: No
[2018-09-08] MEDS ORDERED: MoRPHine SULFATE 2 MG/ML CARP IV PRN (14:27)
[2018-09-08] MEDS ORDERED: ACETAMINOPHEN 325 MG TAB PO PRN (14:27)
[2018-09-08] MEDS ORDERED: ONDANSETRON INJ 2 MG/ML 2 ML VIAL IV PRN (14:27)
[2018-09-08] MEDS ORDERED: TAMSULOSIN HCL 0.4 MG CAP PO PRN (14:27)
[2018-09-08] MEDS: LACTATED RINGER'S 1,000 ML IV SCH ×2 (14:42→23:36)
[2018-09-08] MEDS ORDERED: INFLUENZA ADMINISTRATION CHARGE ONE (15:15)
[2018-09-08] MEDS ORDERED: INFLUENZA VIRUS QUAD VACCINE 0.5 ML SYR IM ONE (15:15)
[2018-09-08] MEDS ORDERED: Nursing to Pharmacy Communication ONE (17:46)
[2018-09-08] MEDS ORDERED: VENLAFAXINE HCL XR 150 MG CAPXR PO SCH (18:00)
--- NOTE | 2018-09-08 19:46 | Consultation Report ---
DATE OF CONSULTATION: 09/08/2018 REASON FOR THE CONSULTATION: The patient had a biopsy of bladder and left ureteroscopy on the with a stent. HISTORY OF PRESENT ILLNESS: She also had a biopsy near the left ureteral orifice and a stent was left in place which came out early. The patient returns now with pain and hydronephrosis and was admitted for pain control. The patient has been seeing the pain has improved on pain medicine. She is not having a fever or a white count. We discussed the options which include placing a stent tomorrow if her pain is not resolved. She understands and discussed with Dr. Yan. MEDICATIONS: Please refer to the home medications in the Emergency Room chart. ALLERGIES: SHE HAS MULTIPLE ALLERGIES, WHICH INCLUDE CEPHALEXIN, CEPHALOSPORINS, ERYTHROMYCIN, PENICILLIN, AND SERTRALINE. PAST MEDICAL HISTORY: Significant for asthma, anxiety, bladder polyp, factor V Leiden mutation, fatty liver, and morbid obesity. SOCIAL HISTORY: She does not smoke or drink. No history of smoking. PHYSICAL EXAMINATION: GENERAL: The patient is a white female and appears to be in minimal distress. HEENT: Unremarkable. No respiratory distress is noted. NECK: Unremarkable. No cervical lymphadenopathy noted. GASTROINTESTINAL: She has minimal left flank pain to percussion. Abdomen is benign. GENITOURINARY: Deferred. EXTREMITIES: No significant pedal edema. ASSESSMENT: Flank pain secondary to hydronephrosis from a stent that was removed early after ureteroscopy. PLAN: Observation and pain control, possible stent placement if the patient develops a fever or intractable pain.
[2018-09-08] MEDS: CIPROFLOXACIN 500 MG TAB PO SCH (20:10)
[2018-09-09 06:12] LABS: Basophils # (auto) 0.01 K/uL (0-0.2); Basophils % (auto) 0.1 %; Eosinophils # (auto) 0.12 K/uL (0-0.5); Eosinophils % (auto) 1.8 %; Hematocrit (blood only) 36.5 % (37-47); Hemoglobin 12.2 g/dL (12.0-16.0); Immature Granulocytes # (auto) 0.01 K/uL (0.00-0.02); Immature Granulocytes % (auto) 0.1 %; Lymphocytes % (auto) 35.9 %; Mean Corpuscular Hgb Conc 33.4 g/dL (32-36); Mean Corpuscular Volume 88.6 fL (80-100); Mean Platelet Volume 9.4 fL (7.4-10.4); Monocytes % (auto) 4.5 %; Neutrophils # (auto) 3.84 K/uL (1.4-6.5); Neutrophils % (auto) 57.6 %; Platelet Count 194 K/uL (130-400); RDW Coefficient of Variation 13.2 % (11.5-14.5); RDW Standard Deviation 42.4 fL (36.4-46.3); Red Blood Count 4.12 M/uL (4.2-5.4); White Blood Count 6.68 K/uL (4.8-10.8)
[2018-09-09 06:51] LABS: BUN Creatinine Ratio 19.6 (10-20); Calcium 8.3 mg/dl (8.5-10.1); Creatinine Clr Calc Pharmacy 157.2 ml/min; Est GFR (African American) 131.5; Est GFR (Non-African American) 113.4; Potassium 3.9 mmol/L (3.5-5.1)
[2018-09-09] MEDS: CIPROFLOXACIN 500 MG TAB PO SCH (07:54)
[2018-09-09] MEDS ORDERED: VENLAFAXINE HCL XR 150 MG CAPXR PO SCH (09:00)
[2018-09-09] MEDS: LACTATED RINGER'S 1,000 ML IV SCH (09:30)
--- NOTE | 2018-09-09 11:23 | Urology Progress Note ---
Date of Service September 09, 2018 pt without pain or fever today . Will discharge and she will f/u with Dr Yan later this week Physical Exam 2 Vital Signs (Past 24 Hours): Last Vital Signs Temp 37 C 09/09/18 06:51 Pulse 86 09/09/18 06:51 Resp 19 09/09/18 06:51 BP 114/68 09/09/18 06:51 Pulse Ox 96 09/09/18 06:51
--- NOTE | 2018-09-09 12:10 | Discharge Summary ---
Date of Service September 09, 2018 Admission HPI Per Admitting Provider Patient is a pleasant 38yo female presenting with left flank and groin pain. Patient has been having longstanding intermittent groin and flank pain with hematuria. Workup performed by Urology - cystoscopy with bilateral retrograde pyelogram performed on 09/04/[address] Yan, s/p biopsy of bladder neck, left ureteral orifice and placement of a left ureteral stent. She was discharged home with Flomax and Doxycycline as well as percocet for pain. States that she was doing well after the procedure, minimal pain. Yesterday, , around 12:00 she noted that her stent became loose and the string was out. She contacted Urology and was told to remove the stent. Patient's pulled the stent without difficulty. Patient had slight discomfort. She took her Flomax, Percocet and Ibuprofen with relief of discomfort. This AM around 02:00 she had worsening left flank and groin pain. She again took her medications with minimal relief. Pain became severe around 08:00 which prompted her to come to the ER. She denies fevers, chills or sweats. Does complain of left flank pain, groin pain and nausea with no vomiting. No additional complaints at this time. ER Course: Morphine x 6mg IV, Zofran x 4mg IV, Levaquin, NSS Admission Exam Per Admitting Provider General: patient resting comfortably, NAD, non-toxic in appearance, AA&O x 4 Skin: warm, dry, intact, no rashes or lesions HEENT: NC/AT, PERRL, EOMI, anicteric sclera, conjunctiva without injection, external ear normal to inspection and nontender, nares patent, moist mucus membranes, dentition intact, no oropharyngeal lesions, neck supple, trachea midline, no LAD, no thyromegaly, no JVD Heart: +S1/S2, regular, no m/r/g Lungs: equal air entry bilaterally, no rales/rhonchi/wheezes Abd: +BS, soft, NT/ND, no masses/organomegaly/ascites, +Left flank discomfort and CVA tenderness Ext: warm, 2+ pulses in UE/LE bilaterally, no clubbing/cyanosis or edema Neuro: nonfocal, patient AA&O x 4, speech intact, no facial droop, moving all extremities on command with equal strength 5/5 Principal Diagnosis L sided hydroureteronephrosis Discharge Exam General: In NAD, comfortable sitting in bed CV: RRR no m/r/g Pulm: CTAB equal breath sounds bilaterally Abdomen: +BS, no TTP in all quadrants Back: No CVA tenderness LE: no LE edema or calf tenderness Discharge Data Allergies Allergy/AdvReac Type Severity Reaction Status Date / Time cephalexin Allergy Intermediate hives Verified 09/08/18 09:15 Cephalosporins Allergy Intermediate HIVES Verified 09/08/18 09:15 erythromycin base Allergy Intermediate HIVES Verified 09/08/18 09:15 Penicillins Allergy Intermediate HIVES Verified 09/08/18 09:15 sertraline Allergy Intermediate HIVES Verified 09/08/18 09:15 Consultations 09/08/18 12:59 ED Decision to Admit Stat 09/08/18 14:27 Consult Urology Routine Ordered Studies 09/08/18 09:39 CT abd pelvis wo con Stat Hospital Course (1) Hydroureteronephrosis: 1) Hydroureteronephrosis: S/p removal of stent placed on 09/04/18. CT with edematous left kidney with moderate left-sided hydronephrosis with urothelial thickening throughout the left ureter, perinephric and periureteric stranding. Patient is afebrile, hemodynamically stable, no leukocytosis. UA+ protein/RBCs/WBCs/epi/bacteria but UCx negative. +UOP. Concern for inflammation s/p instrumention and stent removal and hydronephrosis. Received Zofran 4mg IV q 6 hours PRN for nausea Received Morphine 2mg IV q 2 hours PRN Received Cipro 500mg po BID --> pt was on doxy 100mg BID since 09/04 and was continued on it on discharge by urology Continued Flomax 0.4mg po daily Urology consulted: no procedure given pain improvement and lack of fever/ concern for infection (2) Anxiety: Continued home Effexor Code - Full (2) Anxiety: Total Time Total Time Spent Total Time Spent (In Minutes): <60mins Total Time Includes: Examination of the Patient, Discharge Planning, Medication Reconciliation and Communication With Other Providers Discharge Plan Discharge Items Patient Disposition: Home - Self-Care Reason For Visit: FLANK PAIN Discharge Diagnosis: L sided hydroureteronephrosis Discharge Goals: Decrease discomfort, Diagnostic testing and Therapeutic intervention Activity: Resume your previous activity Non-emergency contact: Primary Care Provider Call non-emergency contact if: you have any medication questions, your symptoms worsen, your pain is worsening and your temperature is above 100.5 Diet: Regular Addtl Provider Instructions: Continue doxycycline per urology Continue taking flomax as prescribed Follow up with Dr. Yan as scheduled on 09/16/18 Call your primary care doctor or Dr. Yan if you are having worsening pain, fever, nausea, vomiting or abdominal pain or go to the nearest emergency room Continue home albuterol and effexor as prescribed Prescriptions: Continue phenazopyridine [Urinary Pain Relief] 95 mg Tablet 95 mg PO Q8 PRN (Reason: urinary pain) RF: 0 tamsulosin [Flomax] 0.4 mg capsule 0.4 mg PO DIRECTED RF: 0 venlafaxine [Effexor XR] 150 mg Capsule,Extended Release 24hr 150 mg PO QAM RF: 0 albuterol sulfate 90 mcg/actuation Hfa Aerosol Inhaler 1 puff INHALATION Q6H PRN (Reason: Shortness Of Breath) RF: 0 doxycycline hyclate 100 mg capsule 100 mg PO BID Qty: 10 RF: 0 Discontinued nitrofurantoin macrocrystal 50 mg Capsule 50 mg PO UD RF: 0 oxycodone-acetaminophen [Percocet] 7.5-325 mg tablet 1 tab PO Q6H PRN (Reason: pain) Qty: 3 RF: 0 Visit Report Forms: [facility] Portal Stand-Alone Forms: [facility] Discharge Orders: Discharge Order (Routine); Ordered 09/09/18 Ordered By: Heath Macdonald Admission Data Admit Date/Time: 09/08/18 13:31 Attending Provider: Yunior Brooks Admit Provider: Jade Ray Primary Care Provider: Lonnie Chi Other Providers: Jade Ray ; Ervin Yan II Service: Medical Other Interventions: Discharge Summary Assessment (RN) Last Done: 09/09/18 11:52 Pending Studies at Discharge: Yes Studies:: Urine culture DC Date/Time DO NOT enter until pt leaves facility: 09/09/18 12:27 Supervising Physician Co-Signing Physician Notes Attending attestation Pt seen and examined in concert with Dr. Noor. In agreement with the documented findings as noted in the resident documentation with any exceptions or additions as noted here. Resting comfortably in bed with minimal complaint of abdominal or flank pain without medication. On examination, S1/S2 nl RRR no MCG. CTAB. Abd NT/ND BS +Ve. Hydroureteronephrosis - nephrology consultation and follow up appreciated - complete course of abx per urology recommendation, flomax Anxiety - continue effexor Resident Activity Tracking Resident Involvement: Resident Care Provided Care Provided: Adult Hospital Medicine
== END 2018-09-09 12:27 | disposition home or self-care (01) | DRG 694 ==
LOC: ED 08:47 → SUATTDRO 13:31 → 3N 13:31